=== PATIENT | male | born 1975 | race Caucasian/White ===

== ENCOUNTER 2022-05-31 16:23 | Emergency (ER) | payer BC, OTHER, SELFPAY ==
[~2022-05-31] VITALS: Ht 182.9 cm; Wt 117.4 kg
[2022-05-31] MEDS ORDERED: MORPHINE 4 MG/ML 1ML VIAL IV ONE (16:35)
[2022-05-31] MEDS ORDERED: OXYCODONE/APAP 5MG/325MG(HOME DOSE PACK) PO ONE (18:15)
[2022-05-31] MEDS ORDERED: PERC5TAB12 PO (18:27)
[2022-05-31 18:51] VITALS: BP 160/70
== END 2022-05-31 18:56 | disposition home or self-care (01) ==
LOC: M ED 16:23 → EDBD 16:23 → M ED 18:56
DX: S42.321A Displaced transverse fracture of shaft of humerus, right arm, initial encounter for closed fracture (principal); W00.0XXA Fall on same level due to ice and snow, initial encounter
CPT/HCPCS: 73030; 73060; 73080; 96372; 99284; J2270